=== PATIENT | male | born 1985 | race Caucasian/White ===

== ENCOUNTER 2016-07-12 11:54 | Emergency (ER) | payer MEDICAID ==
[~2016-07-12] VITALS: Ht 172.7 cm; Wt 75.0 kg
[2016-07-12 12:52] VITALS: BP 107/75
[2016-07-12] MEDS ORDERED: FLUORESCEIN SODIUM 1MG/STRIP BOTHEYE ONE (15:15)
[2016-07-12] MEDS ORDERED: TETRACAINE 0.5% OPHTH DROPS 4ML RIGHTEYE ONE (15:15)
== END 2016-07-12 15:52 | disposition home or self-care (01) ==
LOC: ER 14:27
DX: H10.021 Other mucopurulent conjunctivitis, right eye (principal)
CPT/HCPCS: 99283